=== PATIENT | male | born 1955 | race Caucasian/White ===

== ENCOUNTER 2016-05-03 14:30 | Emergency (ER) | payer BC ==
[2016-05-03] MEDS ORDERED: Ketorolac 30 MG/ML SDV ONE (14:32)
[2016-05-03] MEDS ORDERED: Ondansetron 4 MG/2 ML SDV ONE (14:32)
[2016-05-03] MEDS ORDERED: Ondansetron 4 MG/2 ML SDV IVPUSH ONE (14:36)
[2016-05-03] MEDS ORDERED: Ketorolac 30 MG/ML SDV IVPUSH ONE (14:36)
[2016-05-03] MEDS ORDERED: HYDROmorphone 1 MG/ML Syringe IVPUSH ONE (15:02)
--- NOTE | 2016-05-03 15:25 | EDM.PDOC ---
[id number] KIDNEY STONE? Time Seen by Provider: 05/03/16 14:45 Source of Information: Reports: Patient History Limitations: Reports: No limitations - History of Present Illness INITIAL COMMENTS - FREE TEXT/NARRATIVE: 60-year-old male who had developed some diarrhea earlier today developed very sudden and very intense left flank pain and pelvic discomfort. Also intense nausea, diaphoresis and left back discomfort. No fevers or chills. Onset: sudden Location: Reports: other (Left lower back) Quality: Reports: Stabbing Severity: severe Associated Symptoms: Reports: nausea/vomiting. Denies: fever/chills - Related Data Allergies Allergy/AdvReac Type Severity Reaction Status Date / Time No Known Allergies Allergy Verified 05/03/16 14:39 Home Meds: Home Meds Aspirin [Halfprin] 81 mg PO DAILY 06/26/14 [History] Cholecalciferol (Vitamin D3) [Vitamin D-3] 2,000 unit PO DAILY 06/26/14 [History ] Citalopram Hydrobromide [Celexa] 10 mg PO DAILY 06/26/14 [History] Multivitamin [Multi-Vitamin Daily] 1 each PO DAILY 06/26/14 [History] [place]-3 Fatty Acids [[place]-3] 1,000 mg PO DAILY 06/26/14 [History] amLODIPine/Benazepril [Lotrel 5-20 MG] 1 cap PO DAILY 06/26/14 [History] Past Medical History Cardiovascular History: Reports: Hypertension - Past Surgical History GI Surgical History: Reports: Cholecystectomy, Hernia, inguinal Social & Family History - Tobacco Use Smoking Status *Q: Never Smoker ED ROS GENERAL - Review of Systems Review Of Systems: See Below Constitutional: Denies: fever, chills HEENT: Reports: No symptoms Respiratory: Denies: Shortness of Breath Cardiovascular: Denies: Chest pain GI/Abdominal: Reports: Nausea : Reports: flank pain Skin: Reports: pallor, diaphoresis ED EXAM, GENERAL - Physical Exam Exam: See Below Exam Limited By: No limitations General Appearance: alert, severe distress Respiratory/Chest: no respiratory distress GI/Abdominal: non tender Neurological: alert Psychiatric: anxious Skin Exam: Diaphoretic Course - Vital Signs Last Recorded V/S: Last Vital Signs Temp 96.3 F 05/03/16 14:45 Pulse 72 05/03/16 15:58 Resp 16 05/03/16 14:45 BP 126/88 05/03/16 15:58 Pulse Ox 96 05/03/16 15:58 - Orders/Labs/Meds Orders: Active Orders 24 hr Category Date Time Status Abdomen Pelvis wo Cont [CT] Stat Exams 05/03/16 14:36 Taken Meds: Medications Discontinued Medications Generic Name Dose Route Start Last Admin Trade Name Grabiel PRN Reason Stop Dose Admin Hydromorphone HCl 1 mg 05/03/16 15:02 05/03/16 15:08 Dilaudid IVPUSH 05/03/16 15:03 1 mg ONETIME ONE Administration Ketorolac Tromethamine 30 mg 05/03/16 14:36 05/03/16 14:49 Toradol IVPUSH 05/03/16 14:37 30 mg ONETIME ONE Administration Ondansetron HCl 4 mg 05/03/16 14:36 05/03/16 14:49 Zofran IVPUSH 05/03/16 14:37 4 mg ONETIME ONE Administration Tamsulosin HCl 0.4 mg 05/03/16 15:28 05/03/16 15:46 Flomax PO 05/03/16 15:29 0.4 mg ONETIME ONE Administration - Re-Assessments/Exams Free Text/Narrative Re-Assessment/Exam: 05/03/16 15:27 Patient symptoms presented very typical for renal stone. An IV was started, patient was given 1 L of normal saline and 30 mg of Toradol IV. Pain improved but continued to wax and wane so 1 mg of Dilaudid was given. A CT confirmed mild left hydronephrosis so Flomax 0.4 mg was given. 05/03/16 16:19 30 minutes prior to discharge the patient was completely asymptomatic. He likely passed the stone. He was discharged with 6 additional Vicodin doses in case symptoms return and will drink lots of water. Departure - Departure Time of Disposition: 16:43 Disposition: Home, Self-Care 01 Condition: good Clinical Impression: Ureteric colic Instructions: Kidney Stones, [id number] Referrals: Stevo Ware MD [Primary Care Provider] - Forms: ED Department Discharge Care Plan Goals: Drink lots of water, activity and diet as tolerated. Return any time if worsening or concerns. If some pain recurs you can try ibuprofen and Vicodin first before coming in. - My Orders Last 24 Hours: My Active Orders 05/03/16 14:36 Abdomen Pelvis wo Cont [CT] Stat - Assessment/Plan Last 24 Hours: My Active Orders 05/03/16 14:36 Abdomen Pelvis wo Cont [CT] Stat
[2016-05-03] MEDS ORDERED: Tamsulosin 0.4 MG Cap.ER PO ONE (15:28)
[2016-05-03 16:02] VITALS: BP 126/88
== END 2016-05-03 16:43 | disposition home or self-care (01) ==
LOC: JP.ED 14:30
DX: N23 Unspecified renal colic (principal); I10 Essential (primary) hypertension; Z79.82 Long term (current) use of aspirin; Z79.899 Other long term (current) drug therapy; Z90.49 Acquired absence of other specified parts of digestive tract; Z98.890 Other specified postprocedural states
CPT/HCPCS: 74176; 96374; 96375; 99284; A9270; J1170; J1885; J2405

== ENCOUNTER 2016-10-20 09:10 | Observation (INO) | payer BC ==
[2016-10-20] MEDS ORDERED: Ondansetron 4 MG/2 ML SDV IVPUSH ONE ×2 (09:34→15:41)
--- NOTE | 2016-10-20 09:58 | EDM.PDOC ---
ED HPI GENERAL MEDICAL PROBLEM - General Chief Complaint: General Stated Complaint: FAINTED CAN HARDLY STAND UP Time Seen by Provider: 10/20/16 09:20 Source of Information: Reports: Patient History Limitations: Reports: Physical Impairment (Extreme vertigo and nausea makes changing positions difficult) - History of Present Illness INITIAL COMMENTS - FREE TEXT/NARRATIVE: 60-year-old male had a fairly sudden onset of intense vertigo within the last half hour. No headache or fever. He felt a little uncomfortable with nonspecific malaise this morning, had some breakfast and felt better and was working without a problem. He had a couple coffee and stood up to walk out of the room and had a very sudden onset of intense dizziness and vertigo, almost fainted and walked into the wall. His symptoms have been persistent since the onset. He is very diaphoretic and nauseated. Has trouble opening his eyes and focusing he is so dizzy. He has not had previous symptoms similar to this. No recent significant illness or medication changes. Onset: Sudden Duration: Hour(s): (Within the last 30 minutes) Severity: Severe Worsens with: Reports: Movement (Especially turning the head, he feels best lying on his right side) Associated Symptoms: Reports: Diaphoresis, Malaise, Nausea/Vomiting, Weakness. Denies: Confusion, Fever/Chills, Headaches, Shortness of Breath - Related Data Allergies Allergy/AdvReac Type Severity Reaction Status Date / Time No Known Allergies Allergy Verified 10/20/16 09:15 Home Meds: Home Meds Aspirin [Halfprin] 81 mg PO DAILY 06/26/14 [History] Cholecalciferol (Vitamin D3) [Vitamin D-3] 2,000 unit PO DAILY 06/26/14 [History ] Citalopram Hydrobromide [Celexa] 10 mg PO BEDTIME 06/26/14 [History] Multivitamin [Multi-Vitamin Daily] 1 each PO DAILY 06/26/14 [History] [place]-3 Fatty Acids [[place]-3] 1,000 mg PO DAILY 06/26/14 [History] amLODIPine/Benazepril [Lotrel 5-20 MG] 1 cap PO DAILY 06/26/14 [History] Doxazosin [Cardura] 5 mg PO BEDTIME 10/20/16 [History] Past Medical History Cardiovascular History: Reports: Hypertension Psychiatric History: Reports: Anxiety - Past Surgical History GI Surgical History: Reports: Cholecystectomy, Hernia, Inguinal Social & Family History - Tobacco Use Smoking Status *Q: Never Smoker - Recreational Drug Use Recreational Drug Use: No ED ROS GENERAL - Review of Systems Review Of Systems: See Below Constitutional: Reports: Malaise. Denies: Fever, Chills HEENT: Reports: Other (Chronic nasal congestion and postnasal drip). Denies: Vision Change Respiratory: Denies: Shortness of Breath Cardiovascular: Denies: Chest Pain GI/Abdominal: Reports: Nausea, Vomiting. Denies: Abdominal Pain : Reports: No Symptoms Skin: Reports: Pallor, Diaphoresis Neurological: Reports: Dizziness Psychiatric: Reports: No Symptoms ED EXAM, GENERAL - Physical Exam Exam: See Below Exam Limited By: No Limitations General Appearance: Alert, Moderate Distress Eye Exam: Bilateral Eye: Other (Very difficult to open his eyes because of intense vertigo) Respiratory/Chest: No Respiratory Distress, Lungs Clear Cardiovascular: Regular Rate, Rhythm, Extra Beats (Fairly frequent ectopic beats are heard correlating with PVCs on the monitor) Extremities: No: Pedal Edema Neurological: No Motor/Sensory Deficits Psychiatric: Normal Affect, Normal Mood Skin Exam: Warm, Diaphoretic Course - Vital Signs Last Recorded V/S: Last Vital Signs Temp 96.9 F 10/20/16 16:23 Pulse 70 10/20/16 16:23 Resp 22 H 10/20/16 16:23 BP 127/76 10/20/16 16:23 Pulse Ox 99 10/20/16 16:23 - Orders/Labs/Meds Orders: Medication Orders Acetaminophen (Tylenol) 650 mg PO Q4H PRN PRN Reason: Pain (Mild 1-3)/fever Amlodipine Besylate (Norvasc) 5 mg PO DAILY [facility] Aspirin (Halfprin) 81 mg PO DAILY [facility] Benazepril HCl (Lotensin) 20 mg PO DAILY [facility] Cholecalciferol (Vitamin D3) 2,000 units PO DAILY [facility] Citalopram Hydrobromide (Celexa) 10 mg PO BEDTIME [facility] Doxazosin Mesylate (Cardura) 5 mg PO BEDTIME [facility] Fish Oil (Fish Oil) 1 gm PO DAILY [facility] Sodium Chloride (Normal Saline) 1,000 mls @ 125 mls/hr IV ASDIRECTED [facility] Stop: 10/21/16 00:13 Ibuprofen (Motrin) 600 mg PO Q6H PRN PRN Reason: Pain/Fever Lorazepam (Ativan) 0.5 - 1 mg IVPUSH Q4H PRN PRN Reason: Nausea/Vomiting Meclizine HCl (Antivert) 25 mg PO Q6H PRN PRN Reason: Dizziness Multivitamins/Minerals (Thera M Plus) 1 tab PO DAILY [facility] Ondansetron HCl (Zofran Odt) 4 mg PO Q6H PRN PRN Reason: Nausea able to take PO Ondansetron HCl (Zofran) 4 mg IV Q6H PRN PRN Reason: Nausea/Vomiting Labs: Laboratory Tests 10/20/16 10/20/16 Range/Units 09:30 09:54 WBC 7.0 (4.5-11.0) K/uL RBC 5.18 (4.30-5.90) M/uL Hgb 15.1 H (12.0-15.0) g/dL Hct 43.9 (40.0-54.0) % MCV 85 (80-98) fL MCH 29 (27-31) pg MCHC 34 (32-36) % Plt Count 170 (150-400) K/uL Neut % (Auto) 44 (36-66) % Lymph % (Auto) 43 (24-44) % Power % (Auto) 11 H (2-6) % Eos % (Auto) 2 (2-4) % Baso % (Auto) 0 (0-1) % Sodium 142 (140-148) mmol/L Potassium 3.8 (3.6-5.2) mmol/L Chloride 108 (100-108) mmol/L Carbon Dioxide 22 (21-32) mmol/L Anion Gap 12.2 (5.0-14.0) mmol/L BUN 20 H (7-18) mg/dL Creatinine 1.2 (0.8-1.3) mg/dL Est Cr Clr Drug Dosing TNP Estimated GFR (MDRD) > 60 (>60) Glucose 134 H (74-106) mg/dL Calcium 8.6 (8.5-10.1) mg/dL Total Bilirubin 0.5 (0.2-1.0) mg/dL AST 17 (15-37) U/L ALT 35 (12-78) U/L Alkaline Phosphatase 69 (46-116) U/L Total Protein 7.6 (6.4-8.2) g/dL Albumin 3.7 (3.4-5.0) g/dL Globulin 3.9 H (2.3-3.5) g/dL Albumin/Globulin Ratio 1.0 L (1.2-2.2) Meds: Medications Generic Name Dose Route Start Last Admin Trade Name Freq PRN Reason Stop Dose Admin Acetaminophen 650 mg 10/20/16 16:12 Tylenol PO Q4H PRN Pain (Mild 1-3)/fever Amlodipine Besylate 5 mg 10/21/16 09:00 Norvasc PO DAILY [facility] Aspirin 81 mg 10/21/16 09:00 Halfprin PO DAILY [facility] Benazepril HCl 20 mg 10/21/16 09:00 Lotensin PO DAILY [facility] Cholecalciferol 2,000 units 10/21/16 09:00 Vitamin D3 PO DAILY [facility] Citalopram Hydrobromide 10 mg 10/20/16 21:00 Celexa PO BEDTIME [facility] Doxazosin Mesylate 5 mg 10/20/16 21:00 Cardura PO BEDTIME [facility] Fish Oil 1 gm 10/21/16 09:00 Fish Oil PO DAILY [facility] Sodium Chloride 1,000 mls @ 125 mls/hr 10/20/16 16:12 Normal Saline IV 10/21/16 00:13 ASDIRECTED [facility] Ibuprofen 600 mg 10/20/16 16:12 Motrin PO Q6H PRN Pain/Fever Lorazepam 0.5 - 1 mg 10/20/16 16:12 Ativan IVPUSH Q4H PRN Nausea/Vomiting Meclizine HCl 25 mg 10/20/16 16:12 Antivert PO Q6H PRN Dizziness Multivitamins/Minerals 1 tab 10/21/16 09:00 Thera M Plus PO DAILY [facility] Ondansetron HCl 4 mg 10/20/16 16:12 Zofran Odt PO Q6H PRN Nausea able to take PO Ondansetron HCl 4 mg 10/20/16 16:12 Zofran IV Q6H PRN Nausea/Vomiting Discontinued Medications Generic Name Dose Route Start Last Admin Trade Name Freq PRN Reason Stop Dose Admin Gadoteridol 20 ml 10/20/16 11:53 10/20/16 12:20 Prohance IV 10/20/16 23:00 20 ml .A DIRECTED PRN Administration RADIOLOGY EXAM Lorazepam 1 mg 10/20/16 10:12 10/20/16 10:17 Ativan IVPUSH 10/20/16 10:13 1 mg ONETIME ONE Administration Meclizine HCl 25 mg 10/20/16 13:54 10/20/16 13:59 Antivert PO 10/20/16 13:55 25 mg ONETIME ONE Administration Ondansetron HCl 4 mg 10/20/16 09:34 10/20/16 09:37 Zofran IVPUSH 10/20/16 09:35 4 mg ONETIME ONE Administration Ondansetron HCl 4 mg 10/20/16 15:41 Zofran IVPUSH 10/20/16 15:42 ONETIME ONE - Re-Assessments/Exams Free Text/Narrative Re-Assessment/Exam: 10/20/16 10:46 Initially an Alanna maneuver was attempted after 4 mg of IV Zofran was given which had no significant benefit. The patient remained very symptomatic, so was given 1 mg of Ativan IV. CBC and CMP were obtained. After the patient became more comfortable he was sent back for a CT scan of the brain without contrast. 10/20/16 10:47 CBC and CMP were generally normal. 10/20/16 13:54 CT was also read as normal. An MRI with IV contrast was also done and that was read as normal. patient was then given 25 mg of meclizine by mouth. 10/20/16 15:[address] and MRI being normal and an hour after being given meclizine the patient still was unable to tolerate range of motion with his head. I asked Dr. Gardner to see the patient to consider admission for persistent vertigo. Departure - Departure Time of Disposition: 16:24 Disposition: Admitted As Inpatient 65 Condition: Fair Clinical Impression: Vertigo - Discharge Information
[2016-10-20] MEDS ORDERED: LORazepam 2 MG/ML MDV IVPUSH ONE (10:12)
--- NOTE | 2016-10-20 11:18 | CT ---
CT head without contrast. Indication: Vertigo.. Total DLP 834 Findings: No mass effect. No midline shift. No subacute territorial infarct. No hemorrhage. The leda rium is intact. Mastoid air cells are clear. Impression: 1. No acute intracranial process by CT.
[2016-10-20] MEDS ORDERED: Gadoteridol 279.3 MG/ML 15 ML SDV IV PRN ×2 (11:41→11:53)
--- NOTE | 2016-10-20 13:35 | MR ---
MR brain and IACs with and without contrast Indication: Vertigo. Findings: No acute infarct. No hemosiderin deposition. Minimal high T2 signal abnormality about the p eriventricular white matter. There is no fluid within the mastoid air cells. No contrast enhancing ma ss at the CP angles or internal auditory canals. No extra-axial fluid collection. Mild ethmoidal muco daisy thickening. Impression: 1. No acute infarct. 2. No contrast enhancing mass. 3. Minimal high T2 signal abnormality at the periventricular white matter can indicate chronic small vessel ischemic disease.
[2016-10-20] MEDS ORDERED: Meclizine 25 MG Tab PO ONE (13:54)
--- NOTE | 2016-10-20 15:51 | PCM.HP ---
H&P History of Present Illness - General Date of Service: 10/20/16 Admit Problem/Dx: Admission Diagnosis/Problem Admission Diagnosis/Problem Vertigo Source of Information: Patient, Family, Provider History Limitations: Reports: No Limitations - History of Present Illness Initial Comments - Free Text/Narative: Lucas was brought to the emergency room following an episode of acute dizziness, unsteadiness and nausea. Symptoms started this morning while he was at work around 9 AM. There is no obvious preceding incident. He had felt close to his normal self prior to onset of symptoms and is not aware of any specific thing that felt wrong other than he just felt a little off this morning. His dizziness was severe enough that he had to lay down and this made symptoms even worse. Initially it was mostly in unsteadiness and lightheadedness but then progressed to the sensation that the room was spinning around him. He does not have a headache. He feels like he has some blurry vision because of the sensation of spinning. He has had nausea but no vomiting. No complaints of chest pain or shortness of breath. No history of similar episodes. No recent viral infections. No recent head trauma. No new medications. Workup in the emergency room including laboratory studies, head CT and MRI of the brain have all been reassuring. He continues to be symptomatic despite several different medication trials and will be admitted for observation and further management. - Related Data Allergies/Adverse Reactions: Allergies Allergy/AdvReac Type Severity Reaction Status Date / Time No Known Allergies Allergy Verified 10/20/16 09:15 Home Medications: Home Meds Aspirin [Halfprin] 81 mg PO DAILY 06/26/14 [History] Cholecalciferol (Vitamin D3) [Vitamin D-3] 2,000 unit PO DAILY 06/26/14 [History ] Citalopram Hydrobromide [Celexa] 10 mg PO BEDTIME 06/26/14 [History] Multivitamin [Multi-Vitamin Daily] 1 each PO DAILY 06/26/14 [History] [place]-3 Fatty Acids [[place]-3] 1,000 mg PO DAILY 06/26/14 [History] amLODIPine/Benazepril [Lotrel 5-20 MG] 1 cap PO DAILY 06/26/14 [History] Doxazosin [Cardura] 5 mg PO BEDTIME 10/20/16 [History] Past Medical History Cardiovascular History: Reports: Hypertension Psychiatric History: Reports: Anxiety - Past Surgical History GI Surgical History: Reports: Cholecystectomy, Hernia, Inguinal Social & Family History - Family History Neurological: Denies: CVA - Tobacco Use Smoking Status *Q: Never Smoker - Caffeine Use Caffeine Use: Reports: Coffee - Alcohol Use Alcohol Use History: No - Recreational Drug Use Recreational Drug Use: No H&P Review of Systems - Review of Systems: Review Of Systems: See Below Free Text/Narrative: A complete 12 point review of systems was obtained. Pertinent positives and negatives are noted in the history of present illness. All other systems were reviewed and were negative except as noted. Exam - Exam Exam: See Below - Vital Signs Vital Signs: Last Vital Signs Temp 36 C 10/20/16 10:49 Pulse 63 10/20/16 10:49 Resp 15 10/20/16 10:49 BP 134/88 10/20/16 10:49 Pulse Ox 93 L 10/20/16 10:49 Weight: 108.862 kg - Exam Quality Assessment: No: Supplemental Oxygen General: Alert, Oriented, Cooperative, Mild Distress HEENT: Conjunctiva Clear, Mucosa Moist & Orestes. No: Scleral Icterus Neck: Supple, Trachea Midline. No: Lymphadenopathy Lungs: Clear to Auscultation, Normal Respiratory Effort Cardiovascular: Regular Rate, Regular Rhythm GI/Abdominal Exam: Normal Bowel Sounds, Soft, Non-Tender, No Distention Back Exam: Normal Inspection, Full Range of Motion Extremities: Normal Inspection, No Pedal Edema. No: Increased Warmth Peripheral Pulses: 2+: Dorsalis Pedis (L), Dorsalis Pedis (R) Skin: Warm, Dry Neuro Extensive - Mental Status: Alert, Oriented x3, Nl Response to Commands Neuro Extensive - Motor, Sensory, Reflexes: CN II-XII Intact, Other (lateral nystagmus with fast phase to the left). No: Dysarthria, Abnormal Motor, Tremor Psychiatric: Alert, Normal Affect - Patient Data Lab Results Last 24 hrs: Laboratory Results - last 24 hr 10/20/16 10/20/16 Range/Units 09:30 09:54 WBC 7.0 (4.5-11.0) K/uL RBC 5.18 (4.30-5.90) M/uL Hgb 15.1 H (12.0-15.0) g/dL Hct 43.9 (40.0-54.0) % MCV 85 (80-98) fL MCH 29 (27-31) pg MCHC 34 (32-36) % Plt Count 170 (150-400) K/uL Neut % (Auto) 44 (36-66) % Lymph % (Auto) 43 (24-44) % [place] % (Auto) 11 H (2-6) % Eos % (Auto) 2 (2-4) % Baso % (Auto) 0 (0-1) % Sodium 142 (140-148) mmol/L Potassium 3.8 (3.6-5.2) mmol/L Chloride 108 (100-108) mmol/L Carbon Dioxide 22 (21-32) mmol/L Anion Gap 12.2 (5.0-14.0) mmol/L BUN 20 H (7-18) mg/dL Creatinine 1.2 (0.8-1.3) mg/dL Est Cr Clr Drug Dosing TNP Estimated GFR (MDRD) > 60 (>60) Glucose 134 H (74-106) mg/dL Calcium 8.6 (8.5-10.1) mg/dL Total Bilirubin 0.5 (0.2-1.0) mg/dL AST 17 (15-37) U/L ALT 35 (12-78) U/L Alkaline Phosphatase 69 (46-116) U/L Total Protein 7.6 (6.4-8.2) g/dL Albumin 3.7 (3.4-5.0) g/dL Globulin 3.9 H (2.3-3.5) g/dL Albumin/Globulin Ratio 1.0 L (1.2-2.2) Result Diagrams: 10/20/16 09:54 10/20/16 09:30 Imaging Impressions Last 24 hrs: Head CT - images personally reviewed - no mass, bleed or stroke. normal exam MRI Brain - images personally reviewed - no evidence for stroke, bleed or mass. Possible very mild CSVID *Q Meaningful Use (ADM) - VTE *Q VTE Criteria *Q: - VTE Risk Assess *Q Each Risk Factor Represents 1 Point: None, Obesity (BMI greater than 30) Total Score 1 Point Risk Factors: 1 Each Risk Factor Represents 2 Points: Age 60 - 74 Years Total Score 2 Point Risk Factors: 2 Each Risk Factor Represents 3 Points: None Total Score 3 Point Risk Factors: 0 Each Risk Factor Represents 5 Points: None Total Score 5 Point Risk Factors: 0 Venous Thromboembolism Risk Factor Score *Q: 3 - Stroke *Q Stroke Criteria *Q: - AMI *Q AMI Criteria *Q: - Problem List (1) Vertigo SNOMED Code(s): 166874909 ICD Code: R42 - DIZZINESS AND GIDDINESS Status: Acute Current Visit: Yes Problem List Initiated/Reviewed/Updated: Yes Orders Last 24hrs: Active Orders 24 hr Category Date Time Status Patient Status Manage Transfer [TRANSFER] Routine ADT 10/20/16 15:41 Ordered Gadoteridol [ProHance] Med 10/20/16 11:53 Active 20 ml IV .A DIRECTED PRN Resuscitation Status Routine Resus Stat 10/20/16 15:42 Ordered Medication Orders Gadoteridol (Prohance) 20 ml IV .A DIRECTED PRN PRN Reason: RADIOLOGY EXAM Stop: 10/20/16 23:00 Last Admin: 10/20/16 12:20 Dose: 20 ml Assessment/Plan Comment:: Assessment and plan - Acute vertigo - suspect BPPV. No evidence for stroke based on head CT or MRI. Examination suggests significant lateral nystagmus with fast phase to the left. No history of similar. No new medications or trauma. Symptomatically a little better than at presentation but still unable to sit up for more than a few seconds at a time. -Meclizine as first line for dizziness, lorazepam as second line -Ondansetron for nausea -I encouraged the patient to attempt short desensitization trials by sitting up as long as he can tolerate -vestibular rehabilitation in the morning Essential hypertension - blood pressure well controlled and usual medications will be continued. Maintenance issues - - DVT prophylaxis - mechanical - GI prophylaxis - not indicated - Nutrition - regular diet as tolerated - Desouza catheter - not indicated CODE STATUS - full code Admission justification - patient will be referred observation status for symptomatic management and additional treatment Disposition - anticipate discharge home tomorrow Primary care physician - Dr Jose Elias Gardner M.D.
[2016-10-20] MEDS ORDERED: Ondansetron 4 MG Tab.DIS PO PRN (16:12)
[2016-10-20] MEDS ORDERED: LORazepam 2 MG/ML MDV IVPUSH PRN (16:12)
[2016-10-20] MEDS ORDERED: Ibuprofen 600 MG Tab PO PRN (16:12)
[2016-10-20] MEDS ORDERED: Acetaminophen 325 MG Tab PO PRN (16:12)
[2016-10-20] MEDS ORDERED: Sodium Chloride 0.9% 1,000 ML IV SCH (16:12)
[2016-10-20] MEDS ORDERED: Ondansetron 4 MG/2 ML SDV IV PRN (16:12)
[2016-10-20] MEDS: Meclizine 25 MG Tab PO PRN (19:45)
[2016-10-20] MEDS ORDERED: Doxazosin 4 MG Tab PO SCH (21:00)
[2016-10-21 08:40] VITALS: BP 140/100
[2016-10-21] MEDS ORDERED: Aspirin 81 MG Tab.EC PO SCH (09:00)
[2016-10-21] MEDS ORDERED: Multivitamins with Iron/Calcium/Folic Acid/Minerals Tab PO SCH (09:00)
[2016-10-21] MEDS ORDERED: Cholecalciferol (Vitamin D3) 1,000 Unit Tab PO SCH (09:00)
[2016-10-21] MEDS ORDERED: Citalopram 10 MG Tab PO SCH (09:00)
[2016-10-21] MEDS ORDERED: AMLODIPINE PO SCH (09:00)
[2016-10-21] MEDS ORDERED: Fish Oil/Omega-3 Fatty Acids 1 Gm Cap PO SCH (09:00)
[2016-10-21] MEDS ORDERED: BENAZEPRIL PO SCH (09:00)
[2016-10-21] MEDS ORDERED: amLODIPine 5 MG Tab PO SCH (09:00)
--- NOTE | 2016-10-21 12:22 | PCM.DCSUM1 ---
Discharge Summary - Hospital Course Brief History: 60-year-old male with history of hypertension who presented with acute onset dizziness/vertigo and was admitted for observation and further workup - Discharge Data Discharge Date: 10/21/16 Discharge Disposition: Home, Self-Care 01 Condition: Good - Discharge Diagnosis/Problem(s) (1) Vertigo SNOMED Code(s): 960757941 ICD Code: R42 - DIZZINESS AND GIDDINESS Status: Acute Current Visit: Yes - Patient Summary/Data Consults: Consultations 10/20/16 16:12 OT Evaluation and Treatment [CONS] Routine Please Evaluate and Treat. OT Reason for Consult: Other (Type Response) Special Instructions: vestibular rehab This query below is only for informational purposes and is not editable. Hospital Course: Lucas presented to the emergency room with acute onset of dizziness/vertigo. Workup in the emergency room including laboratory studies, head CT and MRI of the brain was all reassuring and there is no evidence for stroke. Even the persistence and severity of his symptoms he was admitted to the hospital for observation and symptomatic management. Overnight he did utilize some anti- vertigo medications and had a fair amount of improvement with hydration and these medications. The morning after admission his symptoms have improved but have not resolved. He was evaluated by occupational therapy who provided vestibular rehabilitation and this added further improvement to his symptoms. He has been up and walking around and steady on his feet. I believe he is safe for outpatient management at this time with only minimal symptoms. I did provide a prescription for meclizine to help with any symptoms that may arise after discharge. He has received instructions from the vestibular rehabilitation folks and will be utilizing these after his discharge home. He can follow-up if his symptoms do not continue to get better or get worse. He will return to work next week without any limitations assuming he continues to improve at his current rate. - Patient Instructions Diet: Regular Diet as Tolerated Activity: As Tolerated Driving: Do Not Drive (do not drive for the next 24 hours) Showering/Bathing: May Shower Other/Special Instructions: 1. You were in the hospital for management of vertigo. The cause is unknown but your symptoms have improved significantly with medications as well as vestibular rehabilitation. Please follow the directions provided by Danis Onstad during your vestibular rehabilitation this morning. I would recommend that you not drive for at least the next 24 hours but may resume driving when her symptoms have resolved. 2. You may use meclizine every 6 hours as needed for dizziness. It may be a good idea to take this medication prior to activity for the next day or 2 until symptoms have subsided/resolved. 3. Please seek medical attention if you develop fever greater than 101, you have severe dizziness not resolved with the meclizine or maneuvers or if you develop severe headache or weakness that limits your activities of daily life. - Discharge Plan Prescriptions/Med Rec: Meclizine HCl 25 mg PO Q6H PRN #10 tablet PRN Reason: vertigo Home Medications: Home Meds Aspirin [Halfprin] 81 mg PO DAILY 06/26/14 [History] Cholecalciferol (Vitamin D3) [Vitamin D3] 2,000 unit PO DAILY 06/26/14 [History] Citalopram Hydrobromide [Celexa] 10 mg PO BEDTIME 06/26/14 [History] Multivitamin [Multi-Vitamin Daily] 1 each PO DAILY 06/26/14 [History] Hosmer-3 Fatty Acids [Hosmer-3] 1,000 mg PO DAILY 06/26/14 [History] amLODIPine/Benazepril [Lotrel 5-20 MG] 1 cap PO DAILY 06/26/14 [History] Doxazosin [Cardura] 5 mg PO BEDTIME 10/20/16 [History] Meclizine HCl 25 mg PO Q6H PRN #10 tablet 10/21/16 [Rx] Patient Handouts: Benign Positional Vertigo, Meclizine tablets or capsules Referrals: Manuel Moctezuma Sr, MD [Primary Care Provider] - (f/u as needed if your symptoms get worse of do not continue to get better) - Discharge Summary/Plan Comment DC Time >30 min.: No (25) - Patient Data Vitals - Most Recent: Last Vital Signs Temp 37.3 C 10/21/16 08:00 Pulse 75 10/21/16 08:00 Resp 14 10/21/16 08:00 BP 140/100 H 10/21/16 08:59 Pulse Ox 100 10/21/16 08:00 Weight - Most Recent: 109.7 kg I&O - Last 24 hours: Intake & Output 10/20/16 10/21/16 10/21/16 22:59 06:59 14:59 Intake Total 360 250 Output Total 800 600 500 Balance -440 -600 -250 Med Orders - Current: Current Medications Acetaminophen (Tylenol) 650 mg PO Q4H PRN PRN Reason: Pain (Mild 1-3)/fever Amlodipine Besylate (Norvasc) 5 mg PO DAILY [facility] Last Admin: 10/21/16 08:59 Dose: 5 mg Aspirin (Halfprin) 81 mg PO DAILY [facility] Last Admin: 10/21/16 08:59 Dose: 81 mg Benazepril HCl (Lotensin) 20 mg PO DAILY [facility] Cholecalciferol (Vitamin D3) 2,000 units PO DAILY [facility] Last Admin: 10/21/16 09:00 Dose: Not Given Citalopram Hydrobromide (Celexa) 10 mg PO DAILY [facility] Last Admin: 10/21/16 08:59 Dose: 10 mg Doxazosin Mesylate (Cardura) 5 mg PO BEDTIME [facility] Last Admin: 10/20/16 20:04 Dose: Not Given Fish Oil (Fish Oil) 1 gm PO DAILY [facility] Last Admin: 10/21/16 09:00 Dose: Not Given Ibuprofen (Motrin) 600 mg PO Q6H PRN PRN Reason: Pain/Fever Last Admin: 10/21/16 01:39 Dose: 600 mg Lorazepam (Ativan) 0.5 - 1 mg IVPUSH Q4H PRN PRN Reason: Nausea/Vomiting Meclizine HCl (Antivert) 25 mg PO Q6H PRN PRN Reason: Dizziness Last Admin: 10/20/16 19:45 Dose: 25 mg Multivitamins/Minerals (Thera M Plus) 1 tab PO DAILY [facility] Last Admin: 10/21/16 09:00 Dose: 1 tab Ondansetron HCl (Zofran Odt) 4 mg PO Q6H PRN PRN Reason: Nausea able to take PO Ondansetron HCl (Zofran) 4 mg IV Q6H PRN PRN Reason: Nausea/Vomiting Discontinued Medications Gadoteridol (Prohance) 20 ml IV .A DIRECTED PRN PRN Reason: RADIOLOGY EXAM Stop: 10/20/16 23:00 Last Admin: 10/20/16 12:20 Dose: 20 ml Sodium Chloride (Normal Saline) 1,000 mls @ 125 mls/hr IV ASDIRECTED [facility] Stop: 10/21/16 00:13 Lorazepam (Ativan) 1 mg IVPUSH ONETIME ONE Stop: 10/20/16 10:13 Last Admin: 10/20/16 10:17 Dose: 1 mg Meclizine HCl (Antivert) 25 mg PO ONETIME ONE Stop: 10/20/16 13:55 Last Admin: 10/20/16 13:59 Dose: 25 mg Ondansetron HCl (Zofran) 4 mg IVPUSH ONETIME ONE Stop: 10/20/16 09:35 Last Admin: 10/20/16 09:37 Dose: 4 mg Ondansetron HCl (Zofran) 4 mg IVPUSH ONETIME ONE Stop: 10/20/16 15:42 Last Admin: 10/20/16 17:30 Dose: 4 mg *Q Meaningful Use (DIS) - VTE *Q VTE Criteria *Q: - Stroke *Q Stroke Criteria *Q: - AMI *Q AMI Criteria *Q:
[2016-10-21] MEDS: Meclizine 25 MG Tab PO PRN (12:26)
== END 2016-10-21 13:06 | disposition home or self-care (01) ==
LOC: JP.ED 09:10 → JP.ICU 15:41
PROVIDERS: ADMIT Internal Medicine; ATTEND Internal Medicine
DX: R42 Dizziness and giddiness (principal); I10 Essential (primary) hypertension; Z79.82 Long term (current) use of aspirin; Z79.899 Other long term (current) drug therapy; Z90.49 Acquired absence of other specified parts of digestive tract; Z98.890 Other specified postprocedural states
CPT/HCPCS: 36415; 70450; 70553; 80053; 85025; 95992; 96374; 96375; 96376; 97165; 99285; A9270; A9576; G0378; J2060; J2405

== ENCOUNTER 2018-03-23 07:40 | Emergency (ER) | payer BC ==
--- NOTE | 2018-03-23 08:31 | EDM.PDOC ---
ED HPI GENERAL MEDICAL PROBLEM - General Chief Complaint: Abdominal Pain Stated Complaint: LOWER ABD PAIN Time Seen by Provider: 03/23/18 08:15 Source of Information: Reports: Patient, RN Notes Reviewed History Limitations: Reports: No Limitations - History of Present Illness INITIAL COMMENTS - FREE TEXT/NARRATIVE: 62-year-old gentleman presents to the emergency department today with complaint of suprapubic pain and chills, the pain has progressively gotten worse over the last couple days had chills last night denies any urinary symptoms such as dysuria or frequency. No nausea vomiting shortness of breath chest pain still passing gas no history of abdominal surgeries does have a history of a hermatospermia 3 Pelvic Pain Score (Numeric/FACES): 7 - Related Data Allergies Allergy/AdvReac Type Severity Reaction Status Date / Time No Known Allergies Allergy Verified 03/23/18 08:02 Home Meds: Home Meds Aspirin [Halfprin] 81 mg PO DAILY 06/26/14 [History] Citalopram Hydrobromide [Celexa] 20 mg PO BEDTIME 06/26/14 [History] Beckley-3 Fatty Acids [Beckley-3] 1,000 mg PO DAILY 06/26/14 [History] amLODIPine Besylate/Benazepril [Lotrel 5-40 MG] 1 cap PO DAILY 09/29/17 [History ] Amoxicillin/Potassium Clav [Augmentin 875-125 Tablet] 1 each PO BID #20 tablet 03/23/18 [Rx] Hydrocodone/Acetaminophen [Hydrocodon-Acetaminophen 5-325] 1 each PO TID PRN # 10 tablet 03/23/18 [Rx] Metoprolol Succinate [Toprol XL] 1 tab PO DAILY 03/23/18 [History] Past Medical History HEENT History: Reports: Impaired Vision, Sinusitis Cardiovascular History: Reports: Hypertension Genitourinary History: Reports: Renal Calculus Musculoskeletal History: Reports: Back Pain, Chronic, Other (See Below) Other Musculoskeletal History: left hip pain Neurological History: Reports: Vertigo Psychiatric History: Reports: Anxiety - Past Surgical History GI Surgical History: Reports: Cholecystectomy, Hernia, Inguinal Musculoskeletal Surgical History: Reports: Carpal Tunnel, Shoulder Surgery Social & Family History - Tobacco Use Smoking Status *Q: Never Smoker - Caffeine Use Caffeine Use: Reports: Coffee - Recreational Drug Use Recreational Drug Use: No ED ROS GENERAL - Review of Systems Review Of Systems: See Below Constitutional: Reports: Chills HEENT: Reports: No Symptoms, Vertigo Cardiovascular: Reports: No Symptoms GI/Abdominal: Reports: Abdominal Pain, Diarrhea. Denies: Flatus, Nausea, Vomiting : Reports: No Symptoms Musculoskeletal: Reports: No Symptoms Skin: Reports: No Symptoms Neurological: Reports: No Symptoms ED EXAM, GI/ABD - Physical Exam Exam: See Below Text/Narrative:: General: Male, not in any distress, alert and oriented x3 HEENT: head is atraumatic normocephalic, eyes pupils equal round reactive to light, sclera clear no conjunctivitis appreciated. Ears tympanic membranes clear and grimes landmarks and light reflex are present bilaterally canals are clear. Nose no septal deviation, nares are clear, no blood present. Mouth mucosa is moist and pink no erythema or exudate noted in soft palate, tongue is midline uvula is midline, dentition is intact. Neck: Supple no thyromegaly no tracheal deviation. Nodes: Cervical nodes subclavicular nodes nontender no palpable lymphadenopathy noted. Lungs: clear to auscultation bilaterally with symmetrical respirations, no adventitious noise appreciated. CV: Regular rate and rhythm S1 and S2 appreciated no murmurs rubs or gallops noted. Abdomen: Soft, suprapubic tenderness, no palpable masses or organomegaly appreciated, no distention no guarding bowel sounds are present, . Neuro: GCS 15 cranial nerves II to XII intact , Skin: Warm and dry, intact Extremities: No lower extremity edema appreciated, pedal pulse is +2. Course - Vital Signs Last Recorded V/S: Last Vital Signs Temp 96.6 F 03/23/18 10:32 Pulse 68 03/23/18 10:32 Resp 16 03/23/18 10:32 BP 139/91 H 03/23/18 10:32 Pulse Ox 97 03/23/18 10:32 - Orders/Labs/Meds Orders: Active Orders 24 hr Category Date Time Status Vital Signs [RC] Q1H Care 03/23/18 08:54 Active CULTURE BLOOD [BC] Urgent Lab 03/23/18 08:55 Received CULTURE BLOOD [BC] Urgent Lab 03/23/18 09:07 Received Iopamidol [Isovue-300 (61%)] Med 03/23/18 10:03 Active 150 ml IV . DIRECTED PRN Lactated Ringers [Ringers, Lactated] 1,000 ml Med 03/23/18 09:00 Active IV ASDIRECTED Blood Culture x2 Reflex Set [OM.PC] Urgent Oth 03/23/18 08:54 Ordered Medication Orders Lactated Ringer's (Ringers, Lactated) 1,000 mls @ 999 mls/hr IV ASDIRECTED [facility] Last Admin: 03/23/18 09:37 Dose: 999 mls/hr Iopamidol (Isovue-300 (61%)) 150 ml IV . DIRECTED PRN PRN Reason: RADIOLOGY EXAM Stop: 03/24/18 10:04 Labs: Laboratory Tests 03/23/18 03/23/18 03/23/18 Range/Units 08:30 08:55 08:55 WBC 10.7 (4.5-11.0) K/uL RBC 5.34 (4.30-5.90) M/uL Hgb 15.1 H (12.0-15.0) g/dL Hct 46.6 (40.0-54.0) % MCV 87 (80-98) fL MCH 28 (27-31) pg MCHC 32 (32-36) % Plt Count 186 (150-400) K/uL Neut % (Auto) 71 H (36-66) % Lymph % (Auto) 18 L (24-44) % [place] % (Auto) 11 H (2-6) % Eos % (Auto) 1 L (2-4) % Baso % (Auto) 0 (0-1) % Sodium 142 (140-148) mmol/L Potassium 4.3 (3.6-5.2) mmol/L Chloride 107 (100-108) mmol/L Carbon Dioxide 26 (21-32) mmol/L Anion Gap 9.2 (5.0-14.0) mmol/L BUN 17 (7-18) mg/dL Creatinine 1.1 (0.8-1.3) mg/dL Est Cr Clr Drug Dosing 77.68 mL/min Estimated GFR (MDRD) > 60 (>60) Glucose 126 H (74-106) mg/dL Lactic Acid (0.4-2.0) mmol/L Calcium 8.8 (8.5-10.1) mg/dL Total Bilirubin 0.7 (0.2-1.0) mg/dL AST 15 (15-37) U/L ALT 33 (12-78) U/L Alkaline Phosphatase 75 (46-116) U/L C-Reactive Protein 1.42 H (0.0-0.3) mg/dL Total Protein 7.5 (6.4-8.2) g/dL Albumin 3.7 (3.4-5.0) g/dL Globulin 3.8 H (2.3-3.5) g/dL Albumin/Globulin Ratio 1.0 L (1.2-2.2) Urine Color Yellow Urine Appearance Clear Urine pH 7.0 (4.5-8.0) Ur Specific [place] 1.010 (1.008-1.030) Urine Protein Trace (NEGATIVE) mg/dL Urine Glucose (UA) Normal (NEGATIVE) mg/dL Urine Ketones Negative (NEGATIVE) mg/dL Urine Occult Blood Trace (NEGATIVE) Urine Nitrite Negative (NEGAITVE) Urine Bilirubin Negative (NEGATIVE) Urine Urobilinogen Normal (NORMAL) mg/dL Ur Leukocyte Esterase Negative (NEGATIVE) Urine RBC 0-5 (0-5) Urine WBC 0-5 (0-5) Ur Epithelial Cells Few Amorphous Sediment Not seen Urine Bacteria Few Urine Mucus Not seen 03/23/18 Range/Units 08:55 WBC (4.5-11.0) K/uL RBC (4.30-5.90) M/uL Hgb (12.0-15.0) g/dL Hct (40.0-54.0) % MCV (80-98) fL MCH (27-31) pg MCHC (32-36) % Plt Count (150-400) K/uL Neut % (Auto) (36-66) % Lymph % (Auto) (24-44) % [place] % (Auto) (2-6) % Eos % (Auto) (2-4) % Baso % (Auto) (0-1) % Sodium (140-148) mmol/L Potassium (3.6-5.2) mmol/L Chloride (100-108) mmol/L Carbon Dioxide (21-32) mmol/L Anion Gap (5.0-14.0) mmol/L BUN (7-18) mg/dL Creatinine (0.8-1.3) mg/dL Est Cr Clr Drug Dosing mL/min Estimated GFR (MDRD) (>60) Glucose (74-106) mg/dL Lactic Acid 1.8 (0.4-2.0) mmol/L Calcium (8.5-10.1) mg/dL Total Bilirubin (0.2-1.0) mg/dL AST (15-37) U/L ALT (12-78) U/L Alkaline Phosphatase (46-116) U/L C-Reactive Protein (0.0-0.3) mg/dL Total Protein (6.4-8.2) g/dL Albumin (3.4-5.0) g/dL Globulin (2.3-3.5) g/dL Albumin/Globulin Ratio (1.2-2.2) Urine Color Urine Appearance Urine pH (4.5-8.0) Ur Specific [place] (1.008-1.030) Urine Protein (NEGATIVE) mg/dL Urine Glucose (UA) (NEGATIVE) mg/dL Urine Ketones (NEGATIVE) mg/dL Urine Occult Blood (NEGATIVE) Urine Nitrite (NEGAITVE) Urine Bilirubin (NEGATIVE) Urine Urobilinogen (NORMAL) mg/dL Ur Leukocyte Esterase (NEGATIVE) Urine RBC (0-5) Urine WBC (0-5) Ur Epithelial Cells Amorphous Sediment Urine Bacteria Urine Mucus Meds: Medications Generic Name Dose Route Start Last Admin Trade Name Freq PRN Reason Stop Dose Admin Lactated Ringer's 1,000 mls @ 999 mls/hr 03/23/18 09:00 03/23/18 09:37 Ringers, Lactated IV 999 mls/hr ASDIRECTED [facility] Administration Iopamidol 150 ml 03/23/18 10:03 Isovue-300 (61%) IV 03/24/18 10:04 . DIRECTED PRN RADIOLOGY EXAM Discontinued Medications Generic Name Dose Route Start Last Admin Trade Name Freq PRN Reason Stop Dose Admin Sodium Chloride 86 mls @ 3.5 mls/sec 03/23/18 10:15 Normal Saline IV 03/23/18 10:16 ASDIRECTED [facility] Ketorolac Tromethamine 30 mg 03/23/18 08:55 03/23/18 09:40 Toradol IVPUSH 03/23/18 08:56 30 mg ONETIME ONE Administration Ondansetron HCl 4 mg 03/23/18 08:55 03/23/18 09:44 Zofran IVPUSH 03/23/18 08:56 4 mg ONETIME ONE Administration Sodium Chloride 10 ml 03/23/18 10:15 Saline Flush FLUSH 03/23/18 10:16 ONETIME [facility] Departure - Departure Time of Disposition: 11:26 Disposition: Home, Self-Care 01 Condition: Good Clinical Impression: Diverticulitis - Discharge Information Prescriptions: Amoxicillin/Potassium Clav [Augmentin 875-125 Tablet] 1 each PO BID #20 tablet Hydrocodone/Acetaminophen [Hydrocodon-Acetaminophen 5-325] 1 each PO TID PRN # 10 tablet PRN Reason: Pain Referrals: Manuel Moctezuma Sr, MD [Primary Care Provider] - Forms: ED Department Discharge Additional Instructions: Take full course of antibiotics, use hydrocodone as needed for pain control use ibuprofen for baseline pain hydrocodone for breakthrough pain, Please followup with your primary care provider in 7-10 days if not better, please call return to the emergency department with worsening of symptoms. - My Orders Last 24 Hours: My Active Orders 03/23/18 08:54 Vital Signs [RC] Q1H Blood Culture x2 Reflex Set [OM.PC] Urgent 03/23/18 08:55 CULTURE BLOOD [BC] Urgent 03/23/18 09:00 Lactated Ringers [Ringers, Lactated] 1,000 ml IV ASDIRECTED 03/23/18 09:07 CULTURE BLOOD [BC] Urgent 03/23/18 10:03 Iopamidol [Isovue-300 (61%)] 150 ml IV . DIRECTED PRN - Assessment/Plan Last 24 Hours: My Active Orders 03/23/18 08:54 Vital Signs [RC] Q1H Blood Culture x2 Reflex Set [OM.PC] Urgent 03/23/18 08:55 CULTURE BLOOD [BC] Urgent 03/23/18 09:00 Lactated Ringers [Ringers, Lactated] 1,000 ml IV ASDIRECTED 03/23/18 09:07 CULTURE BLOOD [BC] Urgent 03/23/18 10:03 Iopamidol [Isovue-300 (61%)] 150 ml IV . DIRECTED PRN Plan: Assessment Acuity = acute Site and laterality = diverticulitis Etiology = unclear etiology Manifestations = abdominal pain, chills Location of injury = Home Lab values = CBC, CMP, urinalysis unremarkable CT scan consistent with diverticulitis sigmoid region Plan Prescriptions faxed to [facility] hydrocodone 5/325 one tab by mouth 3 times a day when necessary total #10, Augmentin 875 by mouth twice a day 10 days, follow-up primary care 7-10 days if no improvement This note was dictated using Admittor recognition software please call with any questions on syntax or grammar.
[2018-03-23] MEDS ORDERED: Ondansetron 4 MG/2 ML SDV IVPUSH ONE (08:55)
[2018-03-23] MEDS ORDERED: Ketorolac 30 MG/ML SDV IVPUSH ONE (08:55)
[2018-03-23] MEDS ORDERED: Lactated Ringers 1,000 ML IV SCH (09:00)
[2018-03-23] MEDS ORDERED: Iopamidol 612 MG/ML 150 ML Bottle IV PRN (10:03)
[2018-03-23] MEDS ORDERED: Sodium Chloride 0.9% 10 ML Syringe FLUSH SCH (10:15)
[2018-03-23] MEDS ORDERED: Sodium Chloride 0.9% 86 ML IV SCH (10:15)
[2018-03-23 10:32] VITALS: BP 139/91
--- NOTE | 2018-03-23 11:17 | CRLCT ---
INDICATION: Suprapubic pain. COMPARISON: CT scan of the abdomen and pelvis dated 03 May 2016. TECHNIQUE: CT scan of the abdomen and pelvis with 150 cc of Isovue-300 given intravenously. FINDINGS: The lung bases are unremarkable. A few very small granulomas in the liver and spleen. No other focal abnormalities identified in the visualized portions of the liver, spleen, pancreas, adrenal glands, and kidneys. No hydronephrosis. No obstructing uroliths. Colonic diverticulosis. Focal bowel wall thickening and pericolonic edema involving the mid sigmoid colon. The remainder of the GI tract is incompletely distended but shows no gross abnormalities. The stomach and GE junction are not well assessed. No retroperitoneal, pelvic sidewall, or mesenteric adenopathy. Mild atherosclerotic vascular calcifications. IMPRESSION: 1. Focal bowel wall thickening and pericolonic edema involving the mid sigmoid colon likely representing diverticulitis. Recommend direct visualization of this region with colonoscopy once the patient`s symptoms have resolved to exclude the possibility of an underlying neoplastic process. Dictated by Randy Corey MD @ 03/23/2018 11:15:24 AM Dictated by: Randy Corey MD @ 03/23/2018 11:15:36 (Electronically Signed)
== END 2018-03-23 11:36 | disposition home or self-care (01) ==
LOC: JP.ED 07:40
DX: K57.30 Diverticulosis of large intestine without perforation or abscess without bleeding (principal); I10 Essential (primary) hypertension; F41.9 Anxiety disorder, unspecified; Z79.82 Long term (current) use of aspirin; Z79.899 Other long term (current) drug therapy
CPT/HCPCS: 36415; 74177; 80053; 81001; 83605; 85025; 86140; 87040; 96361; 96374; 96375; 99284; J1885; J2405; J7120

== ENCOUNTER → 2018-11-22 | Day surgery (SDC) | payer BC ==
[~2018-11-22] MED LIST: Acetaminophen/HYDROcodone 325-5 MG Tab PO ONE; Dextrose 5%-Lactated Ringers 1,000 ML IV SCH; Ketorolac 60 MG/2 ML SDV IM ONE; Lidocaine 0.5% 50 ML SDV ONE; Lidocaine 1% with EPINEPHrine 1:100,000 50 ML MDV ONE; Midazolam 1 MG/ML 2 ML SDV ONE; Propofol 200 MG/20 ML SDV ONE; ceFAZolin 2 GM in Premix Bag 1 BAG IV ONE; fentaNYL 100 MCG/2 ML SDV ONE
[2018-11-22] MEDS: Acetaminophen 500 MG Tab PO ONE (08:42)
[2018-11-22 11:50] VITALS: BP 137/94; PULSE 60
--- NOTE | 2018-11-23 15:22 | OR ---
DATE OF PROCEDURE: 11/22/2018 SURGEON: Jared Zeng MD PREOPERATIVE DIAGNOSES: 1. Left carpal tunnel syndrome. 2. Indications for screening colonoscopy. POSTOPERATIVE DIAGNOSES: 1. Left carpal tunnel syndrome. 2. Lipoma located within left carpal tunnel. 3. Uncomplicated sigmoid colon diverticulosis. 4. No recurrent colonic polyps. OPERATIVE PROCEDURES: 1. Left carpal tunnel release (79810) with excision of subfascial lipoma within carpal tunnel (78528). 2. Flexible colonoscopy (90145). ANESTHESIA: IV block plus sedation. INDICATION FOR PROCEDURE: This is a 62-year-old presenting with left carpal tunnel syndrome. He had previous carpal tunnel release for similar symptoms several years ago with good results on the right side. He also has indications for screening colonoscopy. He has had similar episodes of diverticulitis previously, as well as history of colon polyps. The plan is to proceed with carpal tunnel release, along with colonoscopy, biopsies, and polypectomy as indicated. Potential risks including bleeding and perforation at the colonoscopy site, and with regard to carpal tunnel, problems with bleeding, infection, injury to the median nerve and/or its branches, possible incomplete relief of symptoms were all reviewed, and the patient wishes to proceed. DETAILS OF PROCEDURE: The patient was taken to the operating room and placed in supine position. IV sedation was administered, after which IV block was placed affecting the left forearm and hand, and those areas were prepped and draped. Standard carpal tunnel incision was made and carried down through the skin and subcutaneous tissue. The transverse carpal ligament was then divided for the length of the incision and extended down to the palm of the hand until there was complete release of any pressure over the median nerve. Care was taken to maintain ulnar orientation with regard to the underlying median nerve to limit the possibility of nerve injury. The incision within the ligament was then extended slightly proximally underneath the skin incision as well. A 1 cm lipoma was encountered within the carpal tunnel, and this was excised so as to limit any persistent pressure on the nerve by the mass effect of the lipoma. At that point, no further problems were noted. Subdermal tissue was approximated with some 4-0 Vicryl stitch and the skin with 5-0 Prolene stitch. Dressing was applied. The patient was then now positioned in a left lateral decubitus position. The patient's initial digital rectal exam was performed and was unremarkable. Colonoscope was then passed into the rectum, which revealed uncomplicated hemorrhoidal columns. The scope was eventually passed to the level of the cecum. Prep was good with only small amount of liquid stool present. The patient did have some uncomplicated left colonic diverticulosis. At this point, there were no signs of any smouldering or acute inflammation. Apart from that, there were no additional polyps identified. No areas of colitis. The scope was then withdrawn and the above findings reconfirmed. The procedure was then concluded. The patient was taken to the recovery room in satisfactory condition. The plan will be to see the patient back next week for followup on the carpal tunnel release, and he should have a repeat colonoscopy in 5 years, given the history of colon polyps. Jared Zeng MD /[id number]
== END ==
LOC: JP.SDS 08:00
PROVIDERS: ATTEND Surgery
DX: Z12.11 Encounter for screening for malignant neoplasm of colon (principal); G56.02 Carpal tunnel syndrome, left upper limb; D17.22 Benign lipomatous neoplasm of skin and subcutaneous tissue of left arm; I10 Essential (primary) hypertension; Z88.8 Allergy status to other drugs, medicaments and biological substances
CPT/HCPCS: 25076; 45378; 64721; 88304; A9270; J0690; J1885; J2001; J2250; J2704; J3010; J7042

== ENCOUNTER 2019-11-28 06:28 | Emergency (ER) | payer BC ==
[2019-11-28 06:50] VITALS: BP 167/112; PULSE 77
[2019-11-28] MEDS ORDERED: Sodium Chloride 0.9% 1,000 ML IV SCH (07:30)
--- NOTE | 2019-11-28 07:43 | EDM.PDOC ---
ED HPI GENERAL MEDICAL PROBLEM - General Chief Complaint: Abdominal Pain Stated Complaint: ABD PAIN Time Seen by Provider: 11/28/19 07:00 Source of Information: Reports: Patient History Limitations: Reports: No Limitations - History of Present Illness INITIAL COMMENTS - FREE TEXT/NARRATIVE: 63-year-old male with 2 weeks of abdominal pain and bloating. Also intermittent diarrhea and 2 brief episodes of hematuria. He has a known history of diverticulosis, diverticulitis, and renal stones. No fevers or chills, no shortness of breath, no significant nausea or vomiting. He feels he needs larger clothes because his belly has felt bloated. He has gone through 7 days of antibiotics for diverticulitis with little effect. Last night he did take some Pepto-Bismol and did feel quite bit better for a while but this morning he had peritoneal irritation and discomfort so came in to be seen. No blood in the stools. Onset: Gradual Duration: Week(s): (2 to 3 weeks of symptoms) Location: Reports: Abdomen Improves with: Reports: Other (Pepto-Bismol seem to help this morning) Worsens with: Reports: Movement (Movement seems worse, resting still is more comfortable) Associated Symptoms: Reports: Loss of Appetite, Malaise. Denies: Chest Pain, Cough, Diaphoresis, Fever/Chills, Shortness of Breath Treatments [employer]ILDH[employer]OD SERVICES COORDINATOR: Reports: Other Medication(s) Other Treatments EARLY CHILDH[employer]OD SERVICES COORDINATOR: zofran Abdominal Pain Score (Numeric/FACES): 6 - Related Data Allergies Allergy/AdvReac Type Severity Reaction Status Date / Time No Known Allergies Allergy Verified 11/28/19 06:37 Home Meds: Home Meds Aspirin [Halfprin] 81 mg PO DAILY 06/26/14 [History] Citalopram Hydrobromide [Celexa] 20 mg PO DAILY 06/26/14 [History] Fayette-3 Fatty Acids [Fayette-3] 1,000 mg PO DAILY 06/26/14 [History] amLODIPine Besylate/Benazepril [Lotrel 5-40 MG] 1 cap PO DAILY 09/29/17 [History] Metoprolol Succinate [Toprol XL] 50 mg PO BID 03/23/18 [History] Lactobacillus Combo No.11 [Probiotic] 1 cap PO DAILY 11/28/19 [History] Past Medical History HEENT History: Reports: Allergic Rhinitis, Impaired Vision, Sinusitis Cardiovascular History: Reports: Hypertension Gastrointestinal History: Reports: Cholelithiasis, Diverticulosis Genitourinary History: Reports: Renal Calculus Musculoskeletal History: Reports: Back Pain, Chronic, Fracture, Other (See Below) Other Musculoskeletal History: left hip pain Neurological History: Reports: Vertigo, Other (See Below) Other Neuro History: Lymes Disease Psychiatric History: Reports: Anxiety Endocrine/Metabolic History: Reports: Obesity/BMI 30+ - Infectious Disease History Infectious Disease History: Reports: Chicken Pox - Past Surgical History HEENT Surgical History: Reports: None Cardiovascular Surgical History: Reports: None GI Surgical History: Reports: Cholecystectomy, Colonoscopy, EGD, Hernia, Inguinal Male Surgical History: Reports: None Endocrine Surgical History: Reports: None Neurological Surgical History: Reports: None Musculoskeletal Surgical History: Reports: Carpal Tunnel Social & Family History - Tobacco Use Tobacco Use Status *Q: Never Tobacco User - Caffeine Use Caffeine Use: Reports: Coffee ED ROS GENERAL - Review of Systems Review Of Systems: See Below Constitutional: Denies: Fever, Chills HEENT: Reports: No Symptoms Respiratory: Denies: Shortness of Breath Cardiovascular: Denies: Chest Pain, Palpitations GI/Abdominal: Reports: Abdominal Pain, Diarrhea. Denies: Black Stool, Difficulty Swallowing, Vomiting : Reports: Hematuria. Denies: Frequency, Urgency Musculoskeletal: Reports: No Symptoms Skin: Reports: No Symptoms Neurological: Denies: Headache ED EXAM, GI/ABD - Physical Exam Exam: See Below Exam Limited By: No Limitations General Appearance: Alert, No Apparent Distress Eyes: Bilateral: Normal Appearance Head: Atraumatic Respiratory/Chest: No Respiratory Distress, Lungs Clear Cardiovascular: Regular Rate, Rhythm. No: Extra Beats GI/Abdominal Exam: Soft, Tender (He is tender to palpation across the right lower abdomen and suprapubic area, equivocal rebound), Abnormal Bowel Sounds (Somewhat hypoactive) Extremities: Normal Inspection. No: Pedal Edema Neurological: Alert, Oriented Psychiatric: Normal Affect, Normal Mood Skin Exam: Warm, Dry Course - Vital Signs Last Recorded V/S: Last Vital Signs Temp 95.7 F L 11/28/19 06:43 Pulse 77 11/28/19 06:43 Resp 20 11/28/19 06:43 BP 167/112 H 11/28/19 06:43 Pulse Ox 98 11/28/19 06:43 - Orders/Labs/Meds Labs: Laboratory Tests 11/28/19 11/28/19 11/28/19 Range/Units 07:16 07:16 07:25 WBC 8.1 (4.5-11.0) K/uL RBC 5.70 (4.30-5.90) M/uL Hgb 16.5 H (12.0-15.0) g/dL Hct 49.0 (40.0-54.0) % MCV 86 (80-98) fL MCH 29 (27-31) pg MCHC 34 (32-36) % Plt Count 202 (150-400) K/uL Neut % (Auto) 54 (36-66) % Lymph % (Auto) 35 (24-44) % Benzie % (Auto) 10 H (2-6) % Eos % (Auto) 2 (2-4) % Baso % (Auto) 0 (0-1) % Sodium 140 (140-148) mmol/L Potassium 3.9 (3.6-5.2) mmol/L Chloride 105 (100-108) mmol/L Carbon Dioxide 25 (21-32) mmol/L Anion Gap 9.9 (5.0-14.0) mmol/L BUN 15 (7-18) mg/dL Creatinine 1.3 (0.8-1.3) mg/dL Est Cr Clr Drug Dosing 64.88 mL/min Estimated GFR (MDRD) 56 L (>60) Glucose 125 H (74-106) mg/dL Calcium 9.0 (8.5-10.1) mg/dL Total Bilirubin 0.6 (0.2-1.0) mg/dL AST 19 (15-37) U/L ALT 38 (12-78) U/L Alkaline Phosphatase 72 (46-116) U/L Total Protein 7.6 (6.4-8.2) g/dL Albumin 3.8 (3.4-5.0) g/dL Globulin 3.8 H (2.3-3.5) g/dL Albumin/Globulin Ratio 1.0 L (1.2-2.2) Lipase 242 (73-393) U/L Urine Color Yellow (YELLOW) Urine Appearance Clear (CLEAR) Urine pH 6.0 (5.0-8.0) Ur Specific [place] >= 1.030 (1.008-1.030) Urine Protein 30 H (NEGATIVE) mg/dL Urine Glucose (UA) Negative (NEGATIVE) mg/dL Urine Ketones Negative (NEGATIVE) mg/dL Urine Occult Blood Trace-lysed H (NEGATIVE) Urine Nitrite Negative (NEGATIVE) Urine Bilirubin Negative (NEGATIVE) Urine Urobilinogen 0.2 (0.2-1.0) EU/dL Ur Leukocyte Esterase Negative (NEGATIVE) Urine RBC 0-5 (0-5) Urine WBC 0-5 (0-5) Ur Epithelial Cells Rare Amorphous Sediment Not seen Urine Bacteria Few Urine Mucus Many Meds: Medications Discontinued Medications Generic Name Dose Route Start Last Admin Trade Name Freq PRN Reason Stop Dose Admin Sodium Chloride 1,000 mls @ 1,000 mls/hr 11/28/19 07:30 11/28/19 07:24 Normal Saline IV 1,000 mls/hr ASDIRECTED BYRON Administration Sodium Chloride 85 mls @ 3.5 mls/sec 11/28/19 07:45 11/28/19 08:04 Normal Saline IV 3.5 mls/sec ASDIRECTED BYRON Administration Iopamidol 149 ml 11/28/19 07:45 11/28/19 08:04 Isovue-300 (61%) IV 11/28/19 07:46 149 ml ONETIME ONE Administration Sodium Chloride 10 ml 11/28/19 07:45 11/28/19 08:04 Saline Flush FLUSH 11/28/19 07:46 10 ml ONETIME ONE Administration - Re-Assessments/Exams Free Text/Narrative Re-Assessment/Exam: 11/28/19 07:43 1 L of normal saline bolus was given, CBC CMP and lipase were checked. If kidney function is adequate, this will be followed by a CT of the abdomen and pelvis with IV contrast. Patient required no medications initially. 11/28/19 08:53 Labs all returned reassuring, including UA. CT abdomen and pelvis with IV contrast was normal. I suspect he is having some type of side effect of the antibiotic treatment and an abnormality of the normal bacterial composition in his bowel. He is going to stop the antibiotic and try probiotics for a few days and increase diet and activity as tolerated. Departure - Departure Time of Disposition: 09:02 Disposition: Home, Self-Care 01 Clinical Impression: Abdominal pain Qualifiers: Abdominal location: lower abdomen, unspecified Qualified Code(s): R10.30 - Lower abdominal pain, unspecified - Discharge Information Instructions: Abdominal Pain, Adult, [id number] Referrals: PCP,None [Primary Care Provider] - Forms: ED Department Discharge Care Plan Goals: Stop antibiotic, continue probiotics for a few more days and increase diet and activity as tolerated. Return anytime if worsening or concerns. Sepsis Event Note (ED) - Evaluation Sepsis Screening Result: No Definite Risk - Focused Exam Vital Signs: Vital Signs Temp Pulse Resp BP Pulse Ox 11/28/19 06:43 95.7 F L 77 20 167/112 H 98 11/28/19 06:42 95.7 F L 77 20 167/112 H 98
[2019-11-28] MEDS ORDERED: Iopamidol 612 MG/ML 500 ML Multipack Bottle IV ONE (07:45)
[2019-11-28] MEDS ORDERED: Sodium Chloride 0.9% 10 ML Syringe FLUSH ONE (07:45)
--- NOTE | 2019-11-28 08:41 | CRLCT ---
INDICATION: Right lower quadrant abdomen pain and bloating. TECHNIQUE: CT abdomen and pelvis acquired with 149 cc Isovue-300 IV contrast. COMPARISON: March 23, 2018. FINDINGS: Lower chest: Unremarkable. Liver: Unremarkable. Normal in size and attenuation. No masses. Gallbladder and bile ducts: Status post cholecystectomy. No biliary dilatation. Pancreas: Unremarkable. No mass or inflammation. Spleen: Unremarkable. Normal in size. No masses. Adrenal glands: Unremarkable. No nodules. Kidneys: Single tiny nonobstructive stone is in the left kidney. No ureteral stones and no hydronephrosis. No signs of pyelonephritis. GI tract: Moderate sigmoid diverticulosis. GI tract otherwise normal in caliber and appearance. No mass or acute inflammation. Normal appendix. Vasculature: Unremarkable. Mesenteric arteries are patent. Lymph nodes: No lymphadenopathy. Omentum/Peritoneum/Abdominal Wall: Very small fat containing umbilical hernia. No sign of mass or infiltration. No free air or significant free fluid. Pelvis: Unremarkable. 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 IMPRESSION: No acute or specific finding to explain right lower quadrant abdomen pain or bloating. Specifically the GI tract is normal in caliber and appearance. Dictated by Jj Villarreal MD @ 11/28/2019 8:39:41 AM Please note that all CT scans at this facility use dose modulation, iterative reconstruction, and/or weight-based dosing when appropriate to reduce radiation dose to as low as reasonably achievable. Dictated by: Jj Villarreal MD @ 11/28/2019 08:39:44 (Electronically Signed)
== END 2019-11-28 09:02 | disposition home or self-care (01) ==
LOC: JP.ED 06:28
DX: R10.31 Right lower quadrant pain (principal); I10 Essential (primary) hypertension; F41.9 Anxiety disorder, unspecified; E66.9 Obesity, unspecified; Z79.82 Long term (current) use of aspirin; Z79.899 Other long term (current) drug therapy; Z68.32 Body mass index [BMI] 32.0-32.9, adult
CPT/HCPCS: 36415; 74177; 80053; 81001; 83690; 85025; 99284; J7030; Q9967